=== PATIENT | female | born 1940 | race Caucasian/White ===

== ENCOUNTER 2021-01-05 09:55 | Inpatient (IN) ==
[2021-01-05] MEDS ORDERED: PANTOPRAZOLE 40 MG VIAL IV ONE (10:09)
--- NOTE | 2021-01-05 10:16 | Emergency Department Note ---
HPI General Chief complaint: Rectal Bleed Stated complaint: Possible GI bleed Time Seen by Provider: 01/05/21 09:57 Source: patient Mode of arrival: ambulatory Limitations: no limitations History of Present Illness HPI Narrative: Narrative: Patient presents emergency department for evaluation of possible GI bleed. She states that she has 2-day history of increasing generalized weakness this morning had black tarry stool with bowel movement. [place] lightheaded when she stood up this morning. Has a history of COPD, chronic cough at baseline, feels a little bit more short of breath today. No chest pain. Has prior history of GI bleed requiring transfusion. Is on Eliquis for history of atrial fibrillation, did not take her Eliquis this morning. No abdominal pain. No other complaints. Related Data Home Medications Medication Instructions Recorded Confirmed amlodipine 10 mg PO DAILY 09/12/19 01/05/21 ferrous gluconate 270 mg PO DAILY 09/12/19 01/03/21 losartan 50 mg PO DAILY 09/12/19 01/05/21 albuterol sulfate 90 mcg/actuation 2 puff INHALATION .Q4-6H PRN g 07/10/20 01/03/21 aerosol inhaler ascorbate calcium (vitamin C) 500 1 g PO QDAY tab 07/10/20 01/03/21 mg tablet azathioprine 50 mg tablet 200 mg PO DAILY tab 07/10/20 01/05/21 cholecalciferol (vitamin D3) 125 125 mcg PO QDAY 07/10/20 01/03/21 mcg (5,000 unit) tablet cyclosporine 0.05 % eye drops in a 1 drp OPHTHALMIC (EYE) QDAY ea 07/10/20 0 01/03/21 dropperette hydrocodone 7.5 mg-acetaminophen 1 tab PO Q6H PRN 07/10/20 01/03/21 325 mg tablet omeprazole 20 mg capsule,delayed 80 mg PO QAM cap 09/03/20 01/03/21 release escitalopram oxalate 10 mg PO QDAY 10/30/20 01/03/21 furosemide 40 mg PO QAM 10/30/20 01/03/21 hydrocodone-acetaminophen 1 tab PO Q6H PRN 10/30/20 01/03/21 metoprolol tartrate 50 mg PO BID 10/30/20 01/03/21 abatacept (with maltose) 250 mg 1,000 mg IV MONTHLY ea 11/21/20 01/05/21 intravenous solution Previous Rx's Medication Instructions Recorded loperamide 2 mg PO Q6H PRN #7 cap 08/23/20 ondansetron HCl 4 mg PO Q8H PRN #6 tab 08/23/20 diltiazem HCl [Cardizem CD] 180 mg PO QAM #30 cap 09/03/20 denosumab 60 mg/mL subcutaneous 60 mg SUBCUT [id number] #1 ml 01/02/21 syringe Allergies Allergy/AdvReac Type Severity Reaction Status Date / Time Sulfa (Sulfonamide Allergy Intermediate Hives Verified 01/03/21 10:41 Antibiotics) sulfasalazine Allergy Unknown Rash with Verified 01/03/21 10:41 itching tramadol AdvReac Mild Nausea Verified 01/03/21 10:41 Review of Systems ROS ROS Narrative: Narrative: As above, all other systems reviewed and negative PFSH Narrative Patient History Narrative: Narrative: Reviewed Medical/Surgical/Family History All Active Problems (Updated 01/05/21 @ 13:27 by Dexter Ray MD) Anemia (Acute) Aspiration into respiratory tract (Acute) GI bleed (Chronic) Anemia (Chronic) Melena (Chronic) Upper gastrointestinal hemorrhage (Chronic) Rheumatoid arthritis (Acute) Hypertension (Chronic) COPD (chronic obstructive pulmonary disease) (Chronic) SOB (shortness of breath) (Chronic) Pulmonary nodules (Chronic) GERD (gastroesophageal reflux disease) (Chronic) Esophageal stricture (Chronic) Cervical disc disease (Chronic) History of total knee arthroplasty (Chronic ~07/2019) History of elbow surgery (Chronic ~2010) Irritable bowel syndrome (Chronic) Chronic back pain (Chronic) Dyspnea (Chronic) Osteopenia (Chronic) Osteoarthritis (Acute) Chronic cough (Chronic) Diarrhea (Acute) Acute dehydration (Acute) Sjogren's disease (Acute) Bronchiectasis (Chronic) Atrial fibrillation (Acute) Atrial fibrillation with rapid ventricular response (Acute) Nocturnal hypoxia (Chronic) Paroxysmal atrial fibrillation (Acute) NELSON (dyspnea on exertion) (Acute) Atrial fibrillation, persistent (Acute) Encounter for long-term (current) use of high-risk medication (Acute) Back pain (Acute) Age related osteoporosis (Acute) Medical History Age related osteoporosis Anemia Aspiration into respiratory tract Atrial fibrillation Atrial fibrillation, persistent Back pain Bronchiectasis Cervical disc disease With radiculopathy Chronic back pain Chronic cough COPD (chronic obstructive pulmonary disease) NELSON (dyspnea on exertion) Dyspnea Insidious onset in 2017, related to anemia, iron deficiency Encounter for long-term (current) use of high-risk medication Esophageal stricture GERD (gastroesophageal reflux disease) GI bleed Hypertension Irritable bowel syndrome Melena Nocturnal hypoxia Obstructive sleep apnea Osteoarthritis Osteopenia Paroxysmal atrial fibrillation Pulmonary nodules Rheumatoid arthritis Sjogren's disease SOB (shortness of breath) Upper gastrointestinal hemorrhage Surgical History History of back surgery (~2006) C6-7 discectomy with fusion History of elbow surgery (~2010) Left History of hysterectomy (~1973) History of left heart catheterization (~07/2020) History of thumb surgery History of total knee arthroplasty (~07/2019) Left Hx laparoscopic cholecystectomy (~2007) Family History Father , age 79 Arthritis Lung cancer Asbestos Grandmother Arthritis Social History Smoking Status: Never smoker Alcohol Intake Frequency: does not drink Substance Use: does not use Exam Narrative Narrative: Narrative: Blood pressure 121/60 pulse 71 respiration 16 temperature 96.9 satting 99% General Limitations: no limitations Head Head: Present atraumatic, normocephalic and normal inspection Eye Eye: Present normal appearance, PERRL and EOMI ENT ENT: Present normal exam and normal oropharynx Neck Neck: Present normal inspection Adbominal Abdominal: Present soft; Absent distention, tenderness, guarding, rebound and rigidity Bimanual: Present other (Rectal exam performed with nurse in the room, stool is black and guaiac positive) Extremities Extremities: Present normal inspection and full ROM Neurological Neurological: Present alert, oriented X3 and CN II-XII intact; Absent motor sensory deficit Psychiatric Psychiatric: Present normal affect and normal mood Skin Skin: Present warm (WNL) and dry Course Vital Signs Vital signs: Vital Signs Temperature 96.9 F L 01/05/21 09:56 Pulse Rate 71 01/05/21 09:56 Respiratory Rate 16 01/05/21 09:56 Blood Pressure 121/60 01/05/21 09:56 Pulse Oximetry (%) 99 01/05/21 09:56 Temperature 96.9 F L 01/05/21 09:56 Pulse Rate 63 01/05/21 12:31 Respiratory Rate 16 01/05/21 09:56 Blood Pressure 122/59 01/05/21 12:31 Pulse Oximetry (%) 98 01/05/21 12:31 [facility] MDM Narrative Medical decision making narrative: Narrative: Patient is given Protonix bolus and drip. I spoke with Dr. Lee on-call general surgeon. Case reviewed in detail with phone. Surgery agreed with admission and recommended starting transfusion 2 units packed red blood cells these were ordered. Discussed findings with the patient. Her questions were answered. She is agreeable with the plan. Lab Data Result diagrams: 01/05/21 10:18 01/05/21 10:18 Labs: Lab Results 01/05/21 01/05/21 01/05/21 Range/Units 10:18 10:18 10:18 WBC 8.7 (4.5-11.0) K/mcL RBC 3.08 L (3.59-5.38) M/mcL Hgb 7.7 L (11.2-15.7) g/dL Hct 25.6 L (34.1-44.9) % MCV 83.1 (80.0-100.0) fL MCH 25.0 L (26.0-34.0) pg MCHC 30.1 L (31.0-36.0) g/dL RDW 16.4 H (11.5-14.5) % Plt Count 388 (140-440) K/mcL MPV 9.4 (7.4-10.4) fL Neut % (Auto) 48.4 (38.0-78.0) % Lymph % (Auto) 37.4 (15.5-49.0) % Otero % (Auto) 6.6 (1.0-12.0) % Eos % (Auto) 7.0 (0.0-7.0) % Baso % (Auto) 0.6 (0.0-2.0) % Lymph # (Auto) 3.24 (1.50-4.80) K/mcL Otero # (Auto) 0.57 (0.10-0.90) K/mcL Eos # (Auto) 0.61 (0.00-0.70) K/mcL Baso # (Auto) 0.05 (0.00-0.30) K/mcL Absolute Neutrophils 4.20 (1.80-8.00) K/mcL PT 13.6 (11.9-14.5) sec INR 1.0 (0.9-1.1) APTT 30.4 (20.0-37.0) sec Sodium 135 (133-145) mmol/L Potassium 4.2 (3.3-5.1) mmol/L Chloride 98 (96-108) mmol/L Carbon Dioxide 24 (22-30) mmol/L Anion Gap 13.0 (8.0-16.0) BUN 23 (8-23) mg/dL Creatinine 1.1 (0.6-1.1) mg/dL GFR Calculation 48 Glucose 102 (70-105) mg/dL Calcium 8.4 L (8.6-10.4) mg/dL Total Bilirubin 0.2 (0.1-1.0) mg/dL AST 14 (<32) U/L ALT < 5 (<40) U/L Alkaline Phosphatase 94 (39-117) U/L Total Protein 7.4 (5.9-8.4) gm/dL Albumin 3.6 (3.2-5.2) gm/dL Globulin 3.8 H (2.2-3.7) gm/dL Albumin/Globulin Ratio 0.9 L (1.0-2.3) ED POC Tests ED POC Tests: TAMIKA - SARS Antigen Negative Discharge Plan Patient/Caregiver Discharge Instructions Pt seen by DIRECTOR WHOLESALE/PA only: No Clinical Impression: GI bleed, Anemia Patient Disposition: Xfer As Inpt ([facility]) Follow up with: Tashi Guaman MD [Primary Care Provider] - Prescriptions: No Action ascorbate calcium (vitamin C) 500 mg tablet 1 g PO QDAY RF: 0 albuterol sulfate [Ventolin HFA] 90 mcg/actuation HFA aerosol inhaler 2 puff inhalation .Q4-6H PRN (Reason: Shortness Of Breath) RF: 0 cholecalciferol (vitamin D3) 125 mcg (5,000 unit) tablet 125 mcg PO QDAY RF: 0 Restasis 0.05 % dropperette 1 drp ophthalmic (eye) QDAY RF: 0 hydrocodone-acetaminophen 7.5-325 mg tablet 1 tab PO Q6H PRN (Reason: Pain) RF: 0 Prolia 60 mg/mL syringe 60 mg subcut [id number] Qty: 1 RF: 0 omeprazole 20 mg capsule,delayed release(DR/EC) 80 mg PO QAM RF: 0 losartan 50 MG tablet 50 mg PO DAILY RF: 0 amlodipine 10 MG tablet 10 mg PO DAILY RF: 0 ferrous gluconate 270 MG tablet 270 mg PO DAILY RF: 0 azathioprine 50 mg tablet 200 mg PO DAILY RF: 0 abatacept (with maltose) 250 mg recon soln 1,000 mg IV MONTHLY RF: 0 ondansetron HCl 4 mg tablet 4 mg PO Q8H PRN (Reason: nausea and vomiting) Qty: 6 RF: 0 loperamide 2 mg capsule 2 mg PO Q6H PRN (Reason: loose stool) Qty: 7 RF: 0 diltiazem HCl [Cardizem CD] 180 mg capsule,extended release 24hr 180 mg PO QAM Qty: 30 RF: 0 furosemide 40 mg Tablet 40 mg PO QAM RF: 0 hydrocodone-acetaminophen 7.5-325 mg Tablet 1 tab PO Q6H PRN (Reason: Pain) RF: 0 metoprolol tartrate 50 mg Tablet 50 mg PO BID RF: 0 escitalopram oxalate 10 mg Tablet 10 mg PO QDAY RF: 0
[2021-01-05] MEDS: PANTOPRAZOLE 80 MG in 0.9 % SODIUM CHLORIDE 100 ML IV SCH ×2 (10:49→20:28)
[2021-01-05] MEDS ORDERED: PROPOFOL 200 MG/20 ML VIAL IV ONE (11:00)
[2021-01-05] MEDS ORDERED: KETAMINE 50 MG/ML Syringe (ANEST) IV ONE (11:00)
[2021-01-05] MEDS ORDERED: LIDOCAINE HCL/PF 100 MG/5 ML SYRINGE IV ONE (11:00)
[2021-01-05 11:01] LABS: Basophils # (Auto) 0.05 K/mcL (0.00-0.30); Basophils % (Auto) 0.6 % (0.0-2.0); Eosinophils # (Auto) 0.61 K/mcL (0.00-0.70); Hematocrit 25.6 % (34.1-44.9); Hemoglobin 7.7 g/dL (11.2-15.7); Lymphocytes # (Auto) 3.24 K/mcL (1.50-4.80); Lymphocytes % (Auto) 37.4 % (15.5-49.0); Mean Cell Volume 83.1 fL (80.0-100.0); Mean Corpuscular HGB Conc 30.1 g/dL (31.0-36.0); Mean Platelet Volume 9.4 fL (7.4-10.4); Monocytes # (Auto) 0.57 K/mcL (0.10-0.90); Monocytes % (Auto) 6.6 % (1.0-12.0); Neutrophils % (Auto) 48.4 % (38.0-78.0); Platelet Count 388 K/mcL (140-440); RBC 3.08 M/mcL (3.59-5.38); Red Cell Distribution Width 16.4 % (11.5-14.5); WBC 8.7 K/mcL (4.5-11.0)
[2021-01-05 11:11] LABS: Partial Thromboplastin Time 30.4 sec (20.0-37.0); Prothrombin Time 13.6 sec (11.9-14.5)
[2021-01-05 11:24] LABS: ALT/SGPT < 5 U/L (<40); AST/SGOT 14 U/L (<32); Albumin 3.6 gm/dL (3.2-5.2); Albumin/Globulin Ratio 0.9 (1.0-2.3); Alkaline Phosphatase 94 U/L (39-117); Bilirubin,Total 0.2 mg/dL (0.1-1.0); Blood Urea Nitrogen 23 mg/dL (8-23); Calcium 8.4 mg/dL (8.6-10.4); Carbon Dioxide 24 mmol/L (22-30); Chloride 98 mmol/L (96-108); Globulin 3.8 gm/dL (2.2-3.7); Glomerular Filtration Rate 48; Glucose 102 mg/dL (70-105)
[2021-01-05] MEDS ORDERED: 0.9 % SODIUM CHLORIDE 250 ML IV SCH ×3 (13:15→20:15)
[2021-01-05 13:32] LABS: Hematocrit 23.5 % (34.1-44.9); Hemoglobin 7.3 g/dL (11.2-15.7)
[2021-01-05] MEDS ORDERED: LACTULOSE 20 GM/30 ML ORAL.SOL PO PRN (14:05)
[2021-01-05] MEDS ORDERED: ONDANSETRON 4 MG/2 ML VIAL IV PRN (14:05)
[2021-01-05] MEDS ORDERED: ACETAMINOPHEN 325 MG TABLET PO PRN (14:05)
--- NOTE | 2021-01-05 14:28 | General Surg History&Physical ---
HPI History of Present Illness Patient information: Note initiated : 01/05/21 at 2:25 pm Service Date, if different from initiated Date: [] Patient: Rosario Kessler a 80 y/o F admitted on for Possible GI bleed. Chief Complaint: [] Chief complaint: Gastrointestinal bleeding History of present illness: Ms. Kessler is a 80 year old F who reports to the emergency room with a history of progressive weakness over the past 12 hours or so. She had black tarry stool prior to coming to the emergency room. She has a prior history of upper GI bleeding without an actual source being found. She is on Eliquis for atrial fibrillation though recent EKGs have shown normal sinus rhythm. Her hemoglobin is 7.3. She is admitted for transfusion and treatment of suspected upper gastroduodenal bleeding. She will have EGD during this hospitalization. EENT Eyes: Present blurry vision and change in vision Ears: Present decreased hearing (Wears hearing aid) Nose, mouth and throat: Present abnormal hearing and dysphagia; Absent throat swelling and vertigo Cardiovascular Cardiovascular: Present palpatations; Absent chest pain, chest pain with activity, irregular heart rhythm and leg edema Respiratory Respiratory: Present cough and dyspnea on exertion; Absent wheezing and chest congestion Gastrointestinal Gastrointestinal: Present change in stool character, dysphagia and melena; Absent abdominal pain and constipation Musculoskeletal Musculoskeletal: Absent arthralgias, back pain, myalgias and neck pain Integumentary Integumentary: Absent pruritus and rash Neurological Neurological: Present abnormal hearing; Absent abnormal gait, confusion and dizziness Psychiatric Psychiatric: Absent abnormal sleep pattern and memory loss Endocrine Endocrine: Absent flushing and palpitations Hematologic/Lymphatic Hematologic/Lymphatic: Absent easy bleeding, easy bruising and lymphadenopathy Allergic/Immunologic Allergic/Immunologic: Absent tongue swelling, throat swelling, uticaria, wheezing and lip swelling PFSH PFSH All Active Problems (Updated 01/05/21 @ 14:35 by Harpreet Lee MD) Acute blood loss anemia (Acute) Anemia (Acute) Aspiration into respiratory tract (Acute) GI bleed (Chronic) Anemia (Chronic) Melena (Chronic) Upper gastrointestinal hemorrhage (Chronic) Rheumatoid arthritis (Acute) Hypertension (Chronic) COPD (chronic obstructive pulmonary disease) (Chronic) SOB (shortness of breath) (Chronic) Pulmonary nodules (Chronic) GERD (gastroesophageal reflux disease) (Chronic) Esophageal stricture (Chronic) Cervical disc disease (Chronic) History of total knee arthroplasty (Chronic ~07/2019) History of elbow surgery (Chronic ~2010) Irritable bowel syndrome (Chronic) Chronic back pain (Chronic) Dyspnea (Chronic) Osteopenia (Chronic) Osteoarthritis (Acute) Chronic cough (Chronic) Diarrhea (Acute) Acute dehydration (Acute) Sjogren's disease (Acute) Bronchiectasis (Chronic) Atrial fibrillation (Acute) Atrial fibrillation with rapid ventricular response (Acute) Nocturnal hypoxia (Chronic) Paroxysmal atrial fibrillation (Acute) NELSON (dyspnea on exertion) (Acute) Atrial fibrillation, persistent (Acute) Encounter for long-term (current) use of high-risk medication (Acute) Back pain (Acute) Age related osteoporosis (Acute) Medical History Age related osteoporosis Anemia Aspiration into respiratory tract Atrial fibrillation Atrial fibrillation, persistent Back pain Bronchiectasis Cervical disc disease With radiculopathy Chronic back pain Chronic cough COPD (chronic obstructive pulmonary disease) NELSON (dyspnea on exertion) Dyspnea Insidious onset in 2017, related to anemia, iron deficiency Encounter for long-term (current) use of high-risk medication Esophageal stricture GERD (gastroesophageal reflux disease) GI bleed Hypertension Irritable bowel syndrome Melena Nocturnal hypoxia Obstructive sleep apnea Osteoarthritis Osteopenia Paroxysmal atrial fibrillation Pulmonary nodules Rheumatoid arthritis Sjogren's disease SOB (shortness of breath) Upper gastrointestinal hemorrhage Surgical History History of back surgery (~2006) C6-7 discectomy with fusion History of elbow surgery (~2010) Left History of hysterectomy (~1973) History of left heart catheterization (~07/2020) History of thumb surgery History of total knee arthroplasty (~07/2019) Left Hx laparoscopic cholecystectomy (~2007) Family History Father , age 79 Arthritis Lung cancer Asbestos Grandmother Arthritis Social History lives independently: Yes marital status: education level: high school occupational status: retired occupation: Massage therapist physical activity: none smoking status: Former smoker quit date: 04/20/1967 pack-years: 4 alcohol intake frequency: does not drink substance use type: does not use MEDS/ALLERGIES Home Medications and Allergies Home Medications Medication Instructions Recorded Confirmed Type amlodipine 10 mg PO DAILY 09/12/19 01/05/21 History ferrous gluconate 270 mg PO DAILY 09/12/19 01/03/21 History losartan 50 mg PO DAILY 09/12/19 01/05/21 History albuterol sulfate 90 mcg/actuation 2 puff INHALATION .Q4-6H PRN g 07/10/20 01/03/21 History aerosol inhaler ascorbate calcium (vitamin C) 500 1 g PO QDAY tab 07/10/20 01/03/21 History mg tablet azathioprine 50 mg tablet 200 mg PO DAILY tab 07/10/20 01/05/21 History cholecalciferol (vitamin D3) 125 125 mcg PO QDAY 07/10/20 01/03/21 History mcg (5,000 unit) tablet cyclosporine 0.05 % eye drops in a 1 drp OPHTHALMIC (EYE) QDAY ea 07/10/20 01/03/21 History dropperette hydrocodone 7.5 mg-acetaminophen 1 tab PO Q6H PRN 07/10/20 01/03/21 History 325 mg tablet loperamide 2 mg PO Q6H PRN #7 cap 08/23/20 01/03/21 Rx ondansetron HCl 4 mg PO Q8H PRN #6 tab 08/23/20 01/03/21 Rx diltiazem HCl [Cardizem CD] 180 mg PO QAM #30 cap 09/03/20 01/03/21 Rx omeprazole 20 mg capsule,delayed 80 mg PO QAM cap 09/03/20 01/03/21 History release escitalopram oxalate 10 mg PO QDAY 10/30/20 01/03/21 History furosemide 40 mg PO QAM 10/30/20 01/03/21 History hydrocodone-acetaminophen 1 tab PO Q6H PRN 10/30/20 01/03/21 History metoprolol tartrate 50 mg PO BID 10/30/20 01/03/21 History abatacept (with maltose) 250 mg 1,000 mg IV MONTHLY ea 11/21/20 01/05/21 History intravenous solution denosumab 60 mg/mL subcutaneous 60 mg SUBCUT [id number] #1 ml 01/02/21 01/02/21 Rx syringe Allergies Allergy/AdvReac Type Severity Reaction Status Date / Time Sulfa (Sulfonamide Allergy Intermediate Hives Verified 01/03/21 10:41 Antibiotics) sulfasalazine Allergy Unknown Rash with Verified 01/03/21 10:41 itching tramadol AdvReac Mild Nausea Verified 01/03/21 10:41 Physical Examination Vital Signs Vital signs: Temp Pulse Resp BP Pulse Ox 96.9 F L 63 16 122/59 98 01/05/21 09:56 01/05/21 12:31 01/05/21 09:56 01/05/21 12:31 01/05/21 12:31 General physical appearance General physical exam: well developed, well nourished, no distress and no pain Eyes Eye exam: PERRL and normal ocular movement ENT ENT exam: normal mucosa and decreased hearing Head Head exam IM: Present atraumatic, normal inspection and normocephalic Neck Neck exam: no masses, no bruits, trachea midline, no lymphadenopathy and no venous distension Cardiovascular Cardiovascular exam IM: Present normal rate and rhythm, RRR, +S1 and +S2; Absent JVD Respiratory Respiratory exam: normal expansion, normal respiratory effort and clear to auscultation Abdomen Abdomen: Present soft, non tender and bowel sounds; Absent masses and guarding Integumentary Integumentary: Present no rash, no growths and no abnormal pigmentation Neurologic Neurologic: Present normal coordination and normal sensation Musculoskeletal Musculoskeletal: Present normal gait and normal posture Psychiatric Psychiatric: Present oriented to time, oriented to person, oriented to place, speech is normal and memory intact Results Labs Result diagrams: 01/05/21 12:50 01/05/21 10:18 Labs: Abnormal lab results 01/05/21 01/05/21 01/05/21 Range/Units 10:18 10:18 12:50 RBC 3.08 L (3.59-5.38) M/mcL Hgb 7.7 L 7.3 L (11.2-15.7) g/dL Hct 25.6 L 23.5 L (34.1-44.9) % MCH 25.0 L (26.0-34.0) pg MCHC 30.1 L (31.0-36.0) g/dL RDW 16.4 H (11.5-14.5) % Calcium 8.4 L (8.6-10.4) mg/dL Globulin 3.8 H (2.2-3.7) gm/dL Albumin/Globulin Ratio 0.9 L (1.0-2.3) Diabetes panel 01/05/21 Range/Units 10:18 Sodium 135 (133-145) mmol/L Potassium 4.2 (3.3-5.1) mmol/L Chloride 98 (96-108) mmol/L Carbon Dioxide 24 (22-30) mmol/L BUN 23 (8-23) mg/dL Creatinine 1.1 (0.6-1.1) mg/dL Glucose 102 (70-105) mg/dL Calcium 8.4 L (8.6-10.4) mg/dL AST 14 (<32) U/L ALT < 5 (<40) U/L Alkaline Phosphatase 94 (39-117) U/L Total Protein 7.4 (5.9-8.4) gm/dL Albumin 3.6 (3.2-5.2) gm/dL Calcium panel 01/05/21 Range/Units 10:18 Calcium 8.4 L (8.6-10.4) mg/dL Albumin 3.6 (3.2-5.2) gm/dL Pituitary panel 01/05/21 Range/Units 10:18 Sodium 135 (133-145) mmol/L Potassium 4.2 (3.3-5.1) mmol/L Chloride 98 (96-108) mmol/L Carbon Dioxide 24 (22-30) mmol/L BUN 23 (8-23) mg/dL Creatinine 1.1 (0.6-1.1) mg/dL Glucose 102 (70-105) mg/dL Calcium 8.4 L (8.6-10.4) mg/dL Adrenal panel 01/05/21 Range/Units 10:18 Sodium 135 (133-145) mmol/L Potassium 4.2 (3.3-5.1) mmol/L Chloride 98 (96-108) mmol/L Carbon Dioxide 24 (22-30) mmol/L BUN 23 (8-23) mg/dL Creatinine 1.1 (0.6-1.1) mg/dL Glucose 102 (70-105) mg/dL Calcium 8.4 L (8.6-10.4) mg/dL Total Bilirubin 0.2 (0.1-1.0) mg/dL AST 14 (<32) U/L ALT < 5 (<40) U/L Alkaline Phosphatase 94 (39-117) U/L Total Protein 7.4 (5.9-8.4) gm/dL Albumin 3.6 (3.2-5.2) gm/dL All other labs normal. A/P Assessment and plan (1) Upper gastrointestinal hemorrhage: Status: Chronic (2) Acute blood loss anemia: Status: Acute (3) COPD (chronic obstructive pulmonary disease): Status: Chronic Qualifiers: COPD type: chronic bronchitis Chronic bronchitis type: simple Qualified Code(s): J41.0 - Simple chronic bronchitis (4) GERD (gastroesophageal reflux disease): Status: Chronic Qualifiers: Esophagitis presence: with esophagitis Esophagitis bleeding: with hemorrhage Qualified Code(s): K21.01 - Gastro-esophageal reflux disease with esophagitis, with bleeding (5) Paroxysmal atrial fibrillation: Status: Acute Narrative A/P Narrative: Discontinue Eliquis Start Protonix IV Sucralfate every 6 hours Every 6 hours hemoglobin and hematocrit Transfuse 2 units of packed red cells Schedule for EGD prior to discharge Time Spent With Patient Time: Total time spent is greater than 50% in coordination of care (as documented) at patient's floor/unit and/or counseling patient:
[2021-01-05] MEDS: 0.9 % SODIUM CHLORIDE 1,000 ML IV SCH (16:23)
[2021-01-05] MEDS: SUCRALFATE 1 GM/10 ML ORAL.SUSP PO SCH (18:23)
[2021-01-05] MEDS: 0.9 % SODIUM CHLORIDE 250 ML IV SCH (20:27)
[2021-01-05] MEDS ORDERED: HYDROCODONE/APAP 7.5/325MG TABLET PO ONE (22:35)
[2021-01-05] MEDS: 0.9 % SODIUM CHLORIDE 10 ML SYRINGE IV SCH (22:52)
[2021-01-06] MEDS: SUCRALFATE 1 GM/10 ML ORAL.SUSP PO SCH ×4 (01:00→17:46)
[2021-01-06 01:09] LABS: Hematocrit 29.1 % (34.1-44.9); Hemoglobin 9.6 g/dL (11.2-15.7)
[2021-01-06] MEDS: PANTOPRAZOLE 80 MG in 0.9 % SODIUM CHLORIDE 100 ML IV SCH ×2 (05:47→15:29)
[2021-01-06] MEDS: 0.9 % SODIUM CHLORIDE 10 ML SYRINGE IV SCH ×3 (05:58→21:56)
[2021-01-06 07:18] LABS: Hematocrit 31.8 % (34.1-44.9); Hemoglobin 9.8 g/dL (11.2-15.7)
[2021-01-06 08:02] LABS: ALT/SGPT < 5 U/L (<40); AST/SGOT 15 U/L (<32); Albumin 3.5 gm/dL (3.2-5.2); Albumin/Globulin Ratio 1.1 (1.0-2.3); Alkaline Phosphatase 86 U/L (39-117); Bilirubin,Direct < 0.2 mg/dL (0-0.3); Bilirubin,Total 0.6 mg/dL (0.1-1.0); Blood Urea Nitrogen 14 mg/dL (8-23); Carbon Dioxide 20 mmol/L (22-30); Chloride 108 mmol/L (96-108); Globulin 3.1 gm/dL (2.2-3.7); Glomerular Filtration Rate 53; Glucose 86 mg/dL (70-105); Lactate Dehydrogenase 196 U/L (135-225); Phosphorous 1.5 mg/dL (2.5-4.5); Triglycerides 150 mg/dL (<150); Uric Acid 6.2 mg/dL (2.5-8.0)
--- NOTE | 2021-01-06 08:17 | EKG ---
[facility] Test Date: 2021-01-05 Pat Name: Rosario Kessler Department: ED Room: Gender: Female Job Training Supervisor: holden : 1940 Requested By: Harpreet Lee Order Number: [id number] Reading MD: Amrik Sanchez Measurements Intervals [place] Rate: 62 P: -19 TN: 154 QRS: -17 QRSD: 93 T: 31 QT: 433 QTc: 440 Interpretive Statements Sinus rhythm Borderline left axis deviation Abnormal R-wave progression, early transition Electronically Signed On 01-06-2021 8:17:10 PDT by Amrik Sanchez /store/M0/[id number]
[2021-01-06] MEDS: 0.9 % SODIUM CHLORIDE 250 ML IV SCH ×2 (09:59→22:32)
[2021-01-06] MEDS: amLODIPine 10 MG TABLET PO SCH (09:59)
[2021-01-06 11:36] LABS: Hematocrit 34.1 % (34.1-44.9)
[2021-01-06] MEDS: 0.9 % SODIUM CHLORIDE 1,000 ML IV SCH (12:26)
--- NOTE | 2021-01-06 13:55 | General Surgery Progress Note ---
SUBJECTIVE Subjective Patient information: Note initiated : 01/06/21 at 1:50 pm Service Date, if different from initiated Date: [] Patient: Rosario Kessler 80 y/o F admitted on 01/05/21 for Possible GI bleed. Chief Complaint: [] Principal diagnosis: Upper GI bleed Interval history: Patient has remained stable overnight. She had 1 small black stool. Her hemoglobin has remained stable since midnight with no evidence of c ontinued bleed. Patient has no abdominal discomfort. She is counseled for upper endoscopy tomorrow. Constitutional Vitals: Vital Signs Temp Pulse Resp BP Pulse Ox 98.6 F 86 27 H 137/118 98 01/06/21 12:22 01/06/21 12:23 01/06/21 12:23 01/06/21 12:22 01/06/21 12:23 Period Temp Pulse Resp BP Sys/Mccord Pulse Ox Last 24 Hr 96.9 F-98.6 F 56-107 15-30 104-159/49-118 88-100 Intake and Output 01/05/21 01/06/21 01/06/21 21:59 05:59 13:59 Intake Total 1229 93 1436 Output Total 325 0 400 Balance 967 94 5006 Weight 186 lb 1.6 oz Intake & Output: Intake & Output 01/05/21 01/06/21 01/06/21 21:59 05:59 13:59 Intake Total 1229 93 1436 Output Total 325 0 400 Balance 233 62 4346 Weight 186 lb 1.6 oz Intake: IV 99 93 956 Sodium Chloride 0.9% 1,000 ml @ 706 50 mls/hr IV .Q20H FISH Rx#: [id number] Sodium Chloride 0.9% 250 ml @ 2 250 20 mls/hr IV .[id number] FISH Rx#: [id number] Protonix 80 mg In Sodium 97 93 Chloride 0.9% 100 ml @ 8 MG/HR 10 mls/hr IV Q10H FISH Rx#: [id number] Oral 480 480 Blood Product 650 Output: Void Amount 325 0 400 Other: Meal Dinner Percent of Meal Consumed 100% Feeding Ability Independent Urine Appearance Clear Clear Urine Color Straw Bright Yellow Urine Odor Normal Stool Size Moderate Stool Color Brown Black Stool Consistency Soft Formed # Voids 1 Eye Eye exam: Present EOMI and PERRL ENT ENT exam: Present mucous membranes moist, normal exam and normal oropharynx Neck Neck exam: Present full ROM and normal inspection; Absent lymphadenopathy and tenderness Respiratory Respiratory exam: Present normal respiratory exam and CTAB; Absent rales, rhonchi and wheezes Cardiovascular Cardiovascular exam: Present normal rate and rhythm, RRR, +S1 and +S2; Absent JVD Additional comments: Patient's heart rhythm remains regular without any ectopy GI/Abdominal GI/Abdominal exam: Present normal bowel sounds and soft; Absent distended, guarding and tenderness Extremities Exam Extremities exam: Present full ROM and neurovascular intact Neurological Exam Neurological exam: Present alert, normal gait and oriented X3 Psychiatric Psychiatric exam: Present normal affect and normal mood Skin Skin exam: Present normal color A/P Assessment and plan (1) Upper gastrointestinal hemorrhage: Status: Chronic (2) Acute blood loss anemia: Status: Acute (3) COPD (chronic obstructive pulmonary disease): Status: Chronic Qualifiers: COPD type: chronic bronchitis Chronic bronchitis type: simple Qualified Code(s): J41.0 - Simple chronic bronchitis (4) GERD (gastroesophageal reflux disease): Status: Chronic Qualifiers: Esophagitis presence: with esophagitis Esophagitis bleeding: with hemorrhage Qualified Code(s): K21.01 - Gastro-esophageal reflux disease with esophagitis, with bleeding (5) Paroxysmal atrial fibrillation: Status: Acute Narrative A/P Narrative: patient has not had any evidence of ongoing bleeding. Hemoglobin remained stable at 11. Will schedule for endoscopy tomorrow. Time Spent With Patient Time: Total time spent is greater than 50% in coordination of care (as documented) at patient's floor/unit and/or counseling patient:
--- NOTE | 2021-01-06 15:12 | XRay Report ---
HISTORY: Preop for endoscopy, GI bleeding FINDINGS: There are couple vague nodules located laterally in the right lower lobe. These were seen on the prior chest CT done on 09/05/20 and have not changed significantly. The CT scan revealed numerous other nodules bilaterally which are not apparent on the chest x-ray. The nodules had been present on earlier studies done in 2019. There is scarring at the costophrenic sulci bilaterally which is also seen previously. Smaller size hiatus hernia. Heart is mildly enlarged but magnified by portable technique. No congestive heart failure is present. IMPRESSION: Stable pulmonary nodules Hiatus hernia No acute abnormality Interpreted and Authenticated by: Gino Sharpe 01/06/21
[2021-01-06] MEDS: HYDROCODONE/APAP 7.5/325MG TABLET PO PRN ×2 (15:36→21:56)
[2021-01-06] MEDS: MUPIROCIN OINT 2% 22GM NARES SCH (21:56)
[2021-01-07] MEDS: SUCRALFATE 1 GM/10 ML ORAL.SUSP PO SCH ×2 (00:38→05:44)
[2021-01-07] MEDS: PANTOPRAZOLE 80 MG in 0.9 % SODIUM CHLORIDE 100 ML IV SCH (01:49)
[2021-01-07] MEDS: 0.9 % SODIUM CHLORIDE 10 ML SYRINGE IV SCH (05:45)
[2021-01-07 07:14] LABS: Basophils # (Auto) 0.04 K/mcL (0.00-0.30); Basophils % (Auto) 0.6 % (0.0-2.0); Eosinophils % (Auto) 10.5 % (0.0-7.0); Hematocrit 33.7 % (34.1-44.9); Hemoglobin 10.6 g/dL (11.2-15.7); Lymphocytes % (Auto) 31.4 % (15.5-49.0); Mean Cell Volume 84.9 fL (80.0-100.0); Mean Corpuscular HGB Conc 31.5 g/dL (31.0-36.0); Mean Platelet Volume 9.3 fL (7.4-10.4); Monocytes # (Auto) 0.56 K/mcL (0.10-0.90); Monocytes % (Auto) 8.4 % (1.0-12.0); Neutrophils % (Auto) 49.1 % (38.0-78.0); Platelet Count 325 K/mcL (140-440); RBC 3.97 M/mcL (3.59-5.38); WBC 6.7 K/mcL (4.5-11.0)
[2021-01-07 07:38] LABS: ALT/SGPT < 5 U/L (<40); AST/SGOT 18 U/L (<32); Albumin 3.4 gm/dL (3.2-5.2); Albumin/Globulin Ratio 0.9 (1.0-2.3); Alkaline Phosphatase 95 U/L (39-117); Bilirubin,Direct < 0.2 mg/dL (0-0.3); Bilirubin,Total 0.4 mg/dL (0.1-1.0); Blood Urea Nitrogen 9 mg/dL (8-23); Calcium 8.1 mg/dL (8.6-10.4); Carbon Dioxide 20 mmol/L (22-30); Chloride 107 mmol/L (96-108); Globulin 3.7 gm/dL (2.2-3.7); Glomerular Filtration Rate 70; Glucose 85 mg/dL (70-105); Lactate Dehydrogenase 210 U/L (135-225); Phosphorous 1.5 mg/dL (2.5-4.5); Triglycerides 131 mg/dL (<150); Uric Acid 5.8 mg/dL (2.5-8.0)
[2021-01-07] MEDS: amLODIPine 10 MG TABLET PO SCH (08:59)
[2021-01-07] MEDS ORDERED: METOPROLOL TARTRATE 50 MG TABLET PO SCH (09:00)
[2021-01-07] MEDS ORDERED: LOSARTAN 50 MG TABLET PO SCH (09:00)
[2021-01-07] MEDS ORDERED: METOPROLOL SUCCINATE 50 MG TAB.XL.24H PO SCH (09:00)
[2021-01-07] MEDS: MUPIROCIN OINT 2% 22GM NARES SCH (09:00)
[2021-01-07] MEDS ORDERED: PNEUMOCOCCAL 23-VAL P-SAC VAC 0.5 ML SYRINGE IM ONE ×2 (10:00→13:30)
--- NOTE | 2021-01-07 10:53 | Brief Operative Note ---
Brief Operative Note Date of procedure: 01/07/21 Pre-op diagnosis: UPPER GASTROINTESTINAL BLEEDING Post-op diagnosis: other (HIATAL HERNIA;DISTAL ESOPHAGITIS;MULTIPLE LINEAR ULCERS OF BODY; ACUTE ANTRAL GASTRITISS) Procedure: ESOPHAGOGASTRODUODENOSCOPY WITH BIOPSIES Grafts/Implants: No Anesthesia: other (GENERAL) Findings: HIATAL HERNIA WITH INFLAMMATION OF G E JUNCTION ;4 LINEAR ULCERATIONS OF BODY OF STOMACH;ACUTE INFLAMMATION OF ANTRUM;NO DUODENAL INFLAMMATION OR BLEEDING Complications: none Surgeon: Harpreet Lee Specimens Removed/Pathology: other (ANTRAL BIOPSIES) Condition: stable Disposition: same day
[2021-01-07] MEDS ORDERED: ONDANSETRON 4 MG/2 ML VIAL IV PRN (11:56)
[2021-01-07] MEDS ORDERED: LACTULOSE 20 GM/30 ML ORAL.SOL PO PRN (11:56)
[2021-01-07] MEDS ORDERED: HYDROCODONE/APAP 7.5/325MG TABLET PO PRN (11:56)
[2021-01-07] MEDS ORDERED: 0.9 % SODIUM CHLORIDE 250 ML IV SCH (11:56)
[2021-01-07] MEDS ORDERED: ACETAMINOPHEN 325 MG TABLET PO PRN (11:56)
[2021-01-07] MEDS ORDERED: SUCRALFATE 1 GM/10 ML ORAL.SUSP PO SCH (12:00)
[2021-01-07] MEDS: 0.9 % SODIUM CHLORIDE 250 ML IV SCH (12:09)
[2021-01-07] MEDS ORDERED: PANTOPRAZOLE 80 MG in 0.9 % SODIUM CHLORIDE 100 ML IV SCH (13:00)
--- NOTE | 2021-01-07 13:06 | Discharge Summary ---
Discharge Provider Provider Patient information: Note initiated : 01/07/21 at 1:05 pm Service Date, if different from initiated Date: [] Patient: Rosario Kessler 80 y/o F admitted on 01/05/21 for Possible GI bleed. Chief Complaint: [] Date of admission: 01/05/21 15:05 Discharge date: 01/07/21 Primary care physician: Tashi Guaman Admitting clinician: Harpreet Lee Attending physician on admission: Harpreet Lee Consults: 01/05/21 Consult to Physician [CONS] Stat Comment: Consulting Provider: Harpreet Lee Reason For Exam: Physician to Consult Attending physician on discharge: Harpreet Lee Discharging clinician: Harpreet Lee COURSE Hospital Course Hospital course: 80-year-old female who presented to the emergency room with a 12-hour history of weakness. She also had black tarry stools. She had crampy abdominal pain. Hemoglobin was 7.3. Patient was admitted with suspected upper GI bleed. She was transfused 2 units of packed red cells. She had 2 other episodes of melena but then her stool became normal. EGD was done earlier today and it shows hiatal hernia with healing ulcers of the body of the stomach and acute antral gastritis. The duodenum was normal and there was no old blood noted. Patient is clinically stable and will be discharged home on oral medication Discharge diagnosis: Acute upper GI bleeding Secondary discharge diagnosis: Gastric ulcers Acute gastritis Posthemorrhagic anemia History of atrial fibrillation Distal esophagitis Reason for admission: Upper GI bleeding and anemia Procedures: Esophagogastroduodenoscopy with biopsy Pertinent studies/significant findings: None Complications: None Time Spent with Patient Time attestation: Total time spent providing and/or coordinating discharge services: Physical Examination Vital Signs Vital signs: Temp Pulse Resp BP Pulse Ox 98.3 F 74 18 134/65 98 01/07/21 12:01 01/07/21 12:54 01/07/21 12:54 01/07/21 12:46 01/07/21 12:54 General physical appearance General physical exam: well developed, well nourished, no distress and no pain Eyes Eye exam: PERRL and normal ocular movement ENT ENT exam: normal mucosa and decreased hearing Head Head exam IM: Present atraumatic, normal inspection and normocephalic Neck Neck exam: no masses, no bruits, trachea midline, no lymphadenopathy and no venous distension Cardiovascular Cardiovascular exam IM: Present normal rate and rhythm, RRR, +S1 and +S2; Absent JVD Respiratory Respiratory exam: normal expansion, normal respiratory effort and clear to auscultation Abdomen Abdomen: Present soft, non tender and bowel sounds; Absent masses and guarding Integumentary Integumentary: Present no rash, no growths and no abnormal pigmentation Neurologic Neurologic: Present normal coordination and normal sensation Musculoskeletal Musculoskeletal: Present normal gait and normal posture Psychiatric Psychiatric: Present oriented to time, oriented to person, oriented to place, speech is normal and memory intact Discharge Plan Patient/Caregiver Discharge Instructions Activity: increase activity as tolerated Diet: Regular Diet Prescriptions: New sucralfate [Carafate] 1 GM tablet 1 gm PO QID Qty: 120 RF: 3 pantoprazole 40 mg Tablet,Delayed Release (Dr/Ec) 40 mg PO BIDAC Qty: 60 RF: 0 Continued ascorbate calcium (vitamin C) 500 mg tablet 1 g PO QDAY RF: 0 albuterol sulfate [Ventolin HFA] 90 mcg/actuation HFA aerosol inhaler 2 puff inhalation .Q4-6H PRN (Reason: Shortness Of Breath) RF: 0 cholecalciferol (vitamin D3) 125 mcg (5,000 unit) tablet 125 mcg PO QDAY RF: 0 Restasis 0.05 % dropperette 1 drp ophthalmic (eye) QDAY RF: 0 hydrocodone-acetaminophen 7.5-325 mg tablet 1 tab PO Q6H PRN (Reason: Pain) RF: 0 Prolia 60 mg/mL syringe 60 mg subcut [id number] Qty: 1 RF: 0 losartan 50 MG tablet 50 mg PO DAILY RF: 0 amlodipine 10 MG tablet 10 mg PO DAILY RF: 0 ferrous gluconate 270 MG tablet 270 mg PO DAILY RF: 0 azathioprine 50 mg tablet 200 mg PO DAILY RF: 0 abatacept (with maltose) 250 mg recon soln 1,000 mg IV MONTHLY RF: 0 furosemide 40 mg Tablet 40 mg PO QAM RF: 0 metoprolol tartrate 50 mg Tablet 50 mg PO QAM RF: 0 clopidogrel [Plavix] 75 mg tablet 75 mg PO DAILY RF: 0 No Action omeprazole 20 mg capsule,delayed release(DR/EC) 40 mg PO QAM RF: 0 Follow Up Plan Follow up with: Tashi Guaman MD [Primary Care Provider] - Harpreet Lee MD [Physician] - (Schedule appointment with me in 6 weeks) Patient Disposition: Home, Self-Care Prognosis: Good Rehab Potential: Good I certify that the patient requires SNF services: No Overall status at discharge: patient is progressing back to baseline Discharge Orders: Discharge Order (Routine); Ordered 01/07/21 Ordered By: Harpreet Lee Pending Pending Pending: Resuscitation Status Resuscitate (Full Code) Diet NPO after Midnight Diet Start ThuJan 07 0001 Sodium Chloride (Sodium Chloride 0.9%) 250 mls @ 20 mls/hr IV .[id number] [facility] Last Admin: 01/07/21 12:04 Dose: 20 mls/hr Documented by: SEAMUS Pantoprazole Sodium 80 mg/ (Sodium Chloride) 100 mls @ 10 mls/hr IV Q10H [facility] Last Admin: 01/07/21 12:04 Dose: 8 mg/hr, 10 mls/hr Documented by: SEAMUS Shift Summary 01/07/21 03:50 Shift Summary by Latoya Pro Turns self in bed. 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 01/05 17:59 COVID-19 PANTHER NAAT Not Detected 01/05 15:05 Admitted to PCU INPATIENT, DAY 3 Recent Hx: ED visit summary-triage report A 80 YO female presented to ED, on 01/05 at 09:56, with chief complaint: Rectal Bleed. Description of symptoms: Pt stated she thinks she has another GI bleed. Stated she is really weak and has had dark stools X2 days. Denies Abd pain. Did not take blood thinner this am 01/05-admitted for suspected GI bleed. Patient with ~2 days weakness and 1 black stool. hx: Upper GI bleeds x 2, Atrial Fib, COPD, chronic back pain, HTN, GERD, RA, esophageal strictures, IBS, Sjogren's disease. A&Ox4. VSS on room air-SpO2 in the high 90s. Hgb of 7.3, received 2 units PRBCs with Hgb improved to 10.3. Protonix drip at 8mg/hr via new iv site LFA 22 ga. SBA to bathroom to void. No BMs since admit. Last Upper GI bleed requiring hospitalization in August. Patient with history of SOB on exertion. Has pending studies with [facility] regarding night time oxygen needs. Upper dentures, [place] with bilat hearing aids, glasses for reading. 2 units of PRBC in lab. Knee high martín hose in place. No pharmacologic DVT prophylaxis. Takes Plavix. EGD scheduled for today at noon. Pt has been NPO since UT when she received her last Carafate dose. History of Present Illness Patient information: Note initiated : 01/05/21 at 2:25 pm Service Date, if different from initiated Date: [] Patient: Rosario Kessler a 80 y/o F admitted on for Possible GI bleed. Chief complaint: Gastrointestinal bleeding History of present illness: Ms. Kessler is a 80 year old F who reports to the emergency room with a history of progressive weakness over the past 12 hours or so. She had black tarry stool prior to coming to the emergency room. She has a prior history of upper GI bleeding without an actual source being found. She is on Eliquis for atrial fibrillation though recent EKGs have shown normal sinus rhythm. Her hemoglobin is 7.3. She is admitted for transfusion and treatment of suspected upper gastroduodenal bleeding. She will have EGD during this hospitalization. Initialized on 01/06/21 05:08 - END OF NOTE Initialized on 01/07/21 03:50 - END OF NOTE
[2021-01-07] MEDS ORDERED: 0.9 % SODIUM CHLORIDE 10 ML SYRINGE IV SCH (14:00)
[2021-01-07] MEDS ORDERED: MUPIROCIN OINT 2% 22GM NARES SCH (21:00)
[2021-01-08] MEDS ORDERED: amLODIPine 10 MG TABLET PO SCH (09:00)
[2021-01-08] MEDS ORDERED: LOSARTAN 50 MG TABLET PO SCH (09:00)
[2021-01-08] MEDS ORDERED: METOPROLOL SUCCINATE 50 MG TAB.XL.24H PO SCH (09:00)
--- NOTE | 2021-01-08 10:21 | Surgical Pathology Report ---
Histology Microscopic Diagnosis Specimen A- STOMACH, BIOPSY: --- CHRONIC GASTRITIS WITH FEATURES OF REACTIVE GASTROPATHY. --- ALCIAN YELLOW STAIN NEGATIVE FOR HELICOBACTER PYLORI TYPE ORGANISMS (ADEQUATE TECHNICAL CONTROL). (ACP) Clinical History Upper GI bleeding. Procedural Impression Hiatal hernia; multiple linear ulcers of body; acute antral gastritis. Gross Description Received in formalin labeled gastric biopsy, are three steiner tissue fragments 0.3 to 0.4 cm. Entirely submitted - one cassette. (SCB:sln) Electronically Signed James Sharpe MD, FCAP Electronically Signed 01/08/2021 10:20
--- NOTE | 2021-01-08 15:51 | EGD Procedure Note ---
DATE OF PROCEDURE 01/07/2021 PREOPERATIVE DIAGNOSIS: Upper GI bleeding. POSTOPERATIVE DIAGNOSES: Hiatal hernia, distal esophagitis, multiple linear ulcers of the gastric body, acute antral gastritis. PROCEDURE: Esophagogastroduodenoscopy with biopsies. SURGEON: Harpreet Lee M.D. FINDINGS: Hiatal hernia with inflammation of the GE junction. Four linear ulceration of the body of the stomach with evidence of healing and no active bleeding. Acute inflammation of the antrum of the stomach. Duodenal bulb, second, third and fourth portions of the duodenum were normal. There was no evidence of blood in the distal duodenum. DESCRIPTION OF PROCEDURE: Under general anesthesia, the patient turned to the left lateral decubitus position. Timeout procedure was carried out as per protocol. Bite block was placed. Scope was introduced through the bite block into the esophagus. The esophagus was normal down to the GE junction. At the GE junction, there was mild inflammation, but no acute ulceration. There was no stricture, web, or ring. There was a moderate-sized hiatal hernia with no evidence of inflammation in the hernia pouch. In the gastric body, there appeared to be two ulcers initially, neither of which were bleeding. The gastric fundus and antrum showed evidence of acute inflammation, but no ulceration and no bleeding. Pylorus was unremarkable. First, second and third portion of the duodenum were normal. Scope was pulled back and retroflex view was done. On retroflex view, I could see two other small, linear, narrow ulcers with evidence of healing of the fibrinous base. In total, there were four ulcers in the body of the stomach, but no active bleeding. Biopsies of the antrum were taken for routine biopsy and CLOtest. Air was suctioned from the stomach and the scope was removed. The patient tolerated the procedure well. LCS:rose Job ID: [id number] Doc ID: [id number] Harpreet Lee M.D. [email or web address]
== END 2021-01-07 15:05 | disposition home or self-care (01) | DRG 378 ==
LOC: ED 09:55 → ICU 15:05
PROVIDERS: ADMIT Internal Medicine; ATTEND Family Medicine Adult Medicine

== ENCOUNTER 2023-04-20 02:48 | Inpatient (IN) ==
[2023-04-20] MEDS ORDERED: ALBUTEROL SULFATE 2.5 MG/3 ML NEBULIZER NEB ONE ×2 (03:19→04:22)
[2023-04-20 03:53] LABS: Basophils # (Auto) 0.01 K/mcL (0.00-0.30); Basophils % (Auto) 0.2 % (0.0-2.0); Eosinophils # (Auto) 0.04 K/mcL (0.00-0.70); Eosinophils % (Auto) 0.6 % (0.0-7.0); Hematocrit 34.8 % (34.1-44.9); Hemoglobin 11.2 g/dL (11.2-15.7); Lymphocytes # (Auto) 2.23 K/mcL (1.50-4.80); Lymphocytes % (Auto) 35.5 % (15.5-49.0); Mean Cell Volume 85.1 fL (80.0-100.0); Mean Corpuscular HGB Conc 32.2 g/dL (31.0-36.0); Mean Platelet Volume 9.4 fL (8.8-12.5); Monocytes # (Auto) 0.69 K/mcL (0.10-0.90); Neutrophils % (Auto) 52.7 % (38.0-78.0); Platelet Count 140 K/mcL (140-440); RBC 4.09 M/mcL (3.59-5.38); WBC 6.3 K/mcL (4.5-11.0)
[2023-04-20 04:07] LABS: ALT/SGPT 15 U/L (<40); AST/SGOT 43 U/L (<32); Albumin 3.7 gm/dL (3.2-5.2); Albumin/Globulin Ratio 1.3 (1.0-2.3); Alkaline Phosphatase 72 U/L (39-117); Bilirubin,Total 0.2 mg/dL (0.1-1.0); Blood Urea Nitrogen 22 mg/dL (8-23); Calcium 8.3 mg/dL (8.6-10.4); Carbon Dioxide 24 mmol/L (22-30); Chloride 99 mmol/L (96-108); Globulin 2.9 gm/dL (2.2-3.7); Glomerular Filtration Rate 53; Glucose 115 mg/dL (70-105)
[2023-04-20] MEDS ORDERED: ONDANSETRON 4 MG/2 ML VIAL IV ONE (05:22)
[2023-04-20] MEDS ORDERED: ONDANSETRON 4 MG ODT TABLET SL ONE (05:31)
[2023-04-20] MEDS ORDERED: OSELTAMIVIR PHOSPHATE 75 MG CAPSULE PO ONE (05:37)
[2023-04-20] MEDS ORDERED: methylPREDNISolone SOD SUCC 125 MG/2 ML VIAL IV ONE (05:48)
[2023-04-20] MEDS ORDERED: IPRATROPIUM/ALBUTEROL 3 ML AMPUL.NEB NEB ONE ×2 (05:48→08:24)
[2023-04-20] MEDS ORDERED: AZITHROMYCIN 500 MG in DEXTROSE 5% IN WATER 250 ML IV ONE (07:57)
[2023-04-20] MEDS ORDERED: 0.9 % SODIUM CHLORIDE 500 ML IV ONE (08:30)
[2023-04-20] MEDS ORDERED: ALBUTEROL SULFATE 2.5 MG/3 ML NEBULIZER NEB PRN (10:13)
[2023-04-20] MEDS ORDERED: guaiFENesin/DEXTROMETHORPHAN 5ML UD CUP PO PRN (10:13)
[2023-04-20] MEDS ORDERED: LOPERAMIDE 2 MG CAPSULE PO PRN (10:13)
[2023-04-20] MEDS ORDERED: ONDANSETRON 4 MG/2 ML VIAL IV PRN (10:13)
[2023-04-20] MEDS ORDERED: traZODone HCL 50 MG TABLET PO PRN (10:13)
[2023-04-20] MEDS: predniSONE 20 MG TABLET PO SCH (11:46)
[2023-04-20] MEDS: ACETAMINOPHEN 325 MG TABLET PO PRN (11:46)
[2023-04-20] MEDS: IPRATROPIUM/ALBUTEROL 3 ML AMPUL.NEB NEB SCH ×2 (13:10→19:12)
[2023-04-20] MEDS: 0.9 % SODIUM CHLORIDE 10 ML SYRINGE IV SCH ×2 (14:15→20:56)
[2023-04-20] MEDS ORDERED: CYCLOBENZAPRINE 10 MG TABLET PO PRN (17:24)
[2023-04-20] MEDS: DOCUSATE SODIUM 100 MG CAPSULE PO SCH (20:55)
[2023-04-20] MEDS: ENOXAPARIN 80 MG/0.8 ML SYRINGE SQ SCH (20:55)
[2023-04-20] MEDS: OSELTAMIVIR PHOSPHATE 75 MG CAPSULE PO SCH (20:55)
[2023-04-20] MEDS ORDERED: SENNOSIDES 1 TABLET PO SCH (21:00)
[2023-04-20] MEDS ORDERED: DABIGATRAN ETEXILATE MESYLATE 75 MG CAPSULE PO SCH (21:00)
[2023-04-20] MEDS: HYDROCODONE/APAP 7.5/325MG TABLET PO PRN (22:30)
[2023-04-21] MEDS: ACETAMINOPHEN 325 MG TABLET PO PRN (00:08)
[2023-04-21] MEDS: IPRATROPIUM/ALBUTEROL 3 ML AMPUL.NEB NEB SCH ×3 (01:03→12:58)
[2023-04-21] MEDS: 0.9 % SODIUM CHLORIDE 10 ML SYRINGE IV SCH (05:57)
[2023-04-21 07:44] LABS: Basophils # (Auto) 0 K/mcL (0.00-0.30); Basophils % (Auto) 0 % (0.0-2.0); Eosinophils # (Auto) 0 K/mcL (0.00-0.70); Eosinophils % (Auto) 0 % (0.0-7.0); Hematocrit 32.4 % (34.1-44.9); Hemoglobin 10.6 g/dL (11.2-15.7); Lymphocytes # (Auto) 0.97 K/mcL (1.50-4.80); Lymphocytes % (Auto) 22.6 % (15.5-49.0); Mean Cell Volume 83.7 fL (80.0-100.0); Mean Corpuscular HGB Conc 32.7 g/dL (31.0-36.0); Mean Platelet Volume 10.5 fL (8.8-12.5); Monocytes # (Auto) 0.58 K/mcL (0.10-0.90); Monocytes % (Auto) 13.5 % (1.0-12.0); Neutrophils % (Auto) 63.7 % (38.0-78.0); Platelet Count 152 K/mcL (140-440); RBC 3.87 M/mcL (3.59-5.38); Red Cell Distribution Width 15.9 % (11.5-14.5); WBC 4.3 K/mcL (4.5-11.0)
[2023-04-21 07:58] LABS: ALT/SGPT 18 U/L (<40); AST/SGOT 35 U/L (<32); Albumin 3.7 gm/dL (3.2-5.2); Albumin/Globulin Ratio 1.4 (1.0-2.3); Alkaline Phosphatase 66 U/L (39-117); Bilirubin,Total < 0.2 mg/dL (0.1-1.0); Blood Urea Nitrogen 23 mg/dL (8-23); Calcium 8.6 mg/dL (8.6-10.4); Carbon Dioxide 25 mmol/L (22-30); Chloride 103 mmol/L (96-108); Globulin 2.7 gm/dL (2.2-3.7); Glomerular Filtration Rate 60; Glucose 143 mg/dL (70-105)
[2023-04-21] MEDS ORDERED: ASCORBIC ACID 500 MG TABLET PO SCH (09:00)
[2023-04-21] MEDS ORDERED: ENOXAPARIN 40 MG/0.4 ML SYRINGE SQ SCH (09:00)
[2023-04-21] MEDS ORDERED: FLUTICASONE PROPIONATE SPRAY.NAS NS SCH (09:00)
[2023-04-21] MEDS ORDERED: DILTIAZEM 180 MG CAP.XL.24H PO SCH (09:00)
[2023-04-21] MEDS ORDERED: LOSARTAN 50 MG TABLET PO SCH (09:00)
[2023-04-21] MEDS ORDERED: amLODIPine 10 MG TABLET PO SCH (09:00)
[2023-04-21] MEDS ORDERED: MAGNESIUM OXIDE 400 MG TABLET PO SCH (09:00)
[2023-04-21] MEDS ORDERED: VITAMIN D3 125 MCG TABLET PO SCH (09:00)
[2023-04-21] MEDS ORDERED: AZITHROMYCIN 250 MG TABLET PO SCH (09:00)
[2023-04-21] MEDS: HYDROCODONE/APAP 7.5/325MG TABLET PO PRN (09:10)
[2023-04-21] MEDS: DOCUSATE SODIUM 100 MG CAPSULE PO SCH (09:11)
[2023-04-21] MEDS: predniSONE 20 MG TABLET PO SCH (09:11)
[2023-04-21] MEDS: ENOXAPARIN 80 MG/0.8 ML SYRINGE SQ SCH (09:12)
[2023-04-21] MEDS: OSELTAMIVIR PHOSPHATE 75 MG CAPSULE PO SCH (09:12)
== END 2023-04-21 13:02 | disposition home or self-care (01) | DRG 152 ==
LOC: ED 02:48 → MEDSUR 09:51
PROVIDERS: ADMIT Internal Medicine; ATTEND Internal Medicine